=== PATIENT | female | born 1970 | race Caucasian/White ===

== ENCOUNTER 2025-04-28 08:55 | Emergency (ER) | payer OTHER, SELFPAY ==
[2025-04-28 09:00] VITALS: BP 177/100
[2025-04-28 09:55] VITALS: BMI 25.9
--- NOTE | 2025-04-28 10:12 | ED.GENMED ---
History of Present Illness
General
Chief Complaint: Facial Problem
Time Seen by Provider: 04/28/25 09:52
History of Present Illness
History of Present Illness:
54-year-old female presents the emergency department for evaluation of right-sided facial swelling. She was bitten by an insect on the right forehead over the weekend and developed significant redness and swelling as well as swollen lymph nodes to
the right neck, went to her primary care physician on Saturday was started on Keflex. She feels that the wound has improved but has significant right facial swelling that began this morning. No fevers or chills.
Review of Systems
Review of Systems
Allergies reviewed?: Yes
All Other Systems: ROS reviewed and negative except as documented in HPI and ROS
Phy Exam
Physical Exam
Physical Exam:
GEN: Well appearing, NAD, WDWN
HEENT: Oral mucosa moist, no scleral icterus. Wound with mild erythema to the right forehead, no active discharge. There is moderate right facial edema with associated right cervical and postauricular adenopathy
Cardiac: Regular rate
Lung: No respiratory distress, no tachypnea
MSK: No gross deformity or injuries
Skin: Good color, no pallor or jaundice, no rashes
Neuro: AO x3, moves all extremities freely
Psych: Calm, cooperative
Course
Vital Signs
Initial and Last Documented VS:
Initial Vital Signs
Temp Pulse Resp BP Pulse Ox
98.5 F 96 18 177/100 100
04/28/25 09:00 04/28/25 09:00 04/28/25 09:00 04/28/25 09:00 04/28/25 09:00
Last Documented Vital Signs
Temp Pulse Resp BP Pulse Ox
98.5 F 78 16 159/94 100
04/28/25 09:00 04/28/25 10:20 04/28/25 10:20 04/28/25 10:20 04/28/25 10:15
MDM/Problems Addressed
MDM/Problems Addressed:
Recommend addition of antihistamines to antibiotics, will provide a prescription for steroids should the antihistamines not improve things
*Pulse Oximetry
SaO2: 100
Oxygen Mode of Delivery: Room air
Patient hypoxic: no
*Critical Care Note
Total Time (30-74mins, 75-104mins- exclusive of procedures): Not Applicable
ED Attending Note
-
Portions of this chart may have been created with voice recognition software.� Occasional wrong word or��sound alike� substitutions may have occurred due to the inherent limitations of voice recognition software.
Discharge Plan
Departure
Patient Disposition: Home (Routine Discharge)
Date of Disposition: 04/28/25
Time of Disposition: 10:13
Patient with high blood pressure during this ER visit?: No
Discharge Problem:
Cellulitis of face, Edema of face
Instructions: Cellulitis (Skin Infection), Adult (DC)
Prescriptions:
New
methylprednisolone [Medrol (Johnathan)] 4 mg tablets,dose pack
See Rx Instructions .ROUTE .COMPLEX Qty: 21 0RF
Rx Instructions:
orally per package directions
Activity Restrictions/Additional Instructions:
You may take 10 mg of cetirizine (Zyrtec) every 8 hours or 180 mg of fexofenadine (Cecelia) every 8 hours for the next 3 to 5 days to help with symptoms. If this does not help please start the steroids I prescribed to you
Interventions
Interventions:
*Risk Screen - Suicide Last Done: 04/28/25 09:00
*General Assessment Last Done: 04/28/25 09:00
*Neglect/Abuse Screening Last Done: 04/28/25 09:56
*ED- Fall Risk Assessment Last Done: 04/28/25 09:56
*ED COVID-19 Vaccine History Last Done: 04/28/25 09:56
*Nursing Disposition Last Done: 04/28/25 10:20
ED- Neurological Assessment Last Done: 04/28/25 09:57
ED-Skin Assessment Last Done: 04/28/25 09:59
Discharge Date and Time
Discharge Date/Time: 04/28/25 10:51
Print Language: KOSOVAN
[2025-04-28 10:20] VITALS: BP 159/94
== END 2025-04-28 10:51 | disposition home or self-care (01) ==
LOC: EMR 08:55
PROVIDERS: EMERGENCY PHYSICIAN Emergency Medicine; FAMILY PHYSICIAN Family Medicine
DX: L03.211 Cellulitis of face (principal); R60.9 Edema, unspecified
CPT/HCPCS: 99282

== ENCOUNTER 2025-06-08 06:23 | Day surgery (SDC) | payer OTHER, SELFPAY | END 2025-06-08 10:52 | disposition home or self-care (01) | LOC: GI 06:23 | PROVIDERS: ATTENDING PHYSICIAN Internal Medicine Gastroenterology | DX: Z12.11 Encounter for screening for malignant neoplasm of colon (principal); D12.2 Benign neoplasm of ascending colon; K55.20 Angiodysplasia of colon without hemorrhage; K57.30 Diverticulosis of large intestine without perforation or abscess without bleeding; K64.8 Other hemorrhoids; Z86.0100 Personal history of colon polyps, unspecified | CPT/HCPCS: 45380; 88305 ==